=== PATIENT | female | born 1995 | race Caucasian/White ===

== ENCOUNTER 2018-08-22 17:07 | Emergency (ER) | payer OTHER ==
[~2018-08-22] VITALS: Ht 157.5 cm; Wt 64.0 kg
[2018-08-22 17:14] VITALS: Ht 157.5 cm; Wt 64.0 kg
--- NOTE | 2018-08-22 18:24 | EN ---
Date/Time of Note Date/Time of Note DATE: 08/22/18 TIME: 18:18 ER Progress Note 22-year-old female, discharged yesterday from [place] for a right ovarian cyst, presents complaining of vaginal bleeding and mild pain in the right area. Patient is stable to be seen in the ED to, I will start work-up in triage. THALIA MCCAIN MD Aug 22, 2018 18:24
[2018-08-22] MEDS ORDERED: morphine 4 MG/ML VIAL IV STA (19:14)
[2018-08-22] MEDS ORDERED: ONDANSETRON 4 MG INJ IV STA (19:14)
--- NOTE | 2018-08-22 19:22 | ERD ---
ER Documentation Chief Complaint Chief Complaint pt is bib RA [id number] with c/o abd pain hx cyst HPI This is a 22-year-old female with history of recent ruptured right ovarian cyst who presents to the ED complaining of pelvic pain and gross hematuria x1 day. Patient states she was seen at [place] yesterday for ruptured right ovarian cyst. She was also told that she had anemia with a hemoglobin is 7.3. She refused to transfusion at that time. She states she was home today when she started to have sudden onset sharp right lower pelvic pain, similar to her previous pain. She states she noticed gross hematuria when urinating today. She states she feels dizzy and lightheaded. She denies any nausea or vomiting. She took [place] prior to coming here. Denies any fevers. Denies vaginal bleeding. No other complaints. ROS All systems reviewed and are negative except as per history of present illness. Medications Home Meds Active Scripts Ibuprofen* (Motrin*) 600 Mg Tab, 600 MG PO Q6H PRN for PAIN AND OR ELEVATED TEMP, #30 TAB Prov:DISHIGRIKIAN,ZEPYUR N PA-C 08/22/18 Acetaminophen with Codeine (Acetaminophen-Cod #3 Tablet) 1 Each Tablet, 1 TAB PO Q6H PRN for PAIN, #10 TAB Prov:DISHIGRIKIAN,ZEPYUR N PA-C 08/22/18 Noreth A-Et Estra/Fe Fumarate (LO LOESTRIN FE 1-10 TABLET) 1 Each Tablet, 1 EACH PO DAILY for 30 Days, #90 TAB Prov:DISHIGRIKIAN,ZEPYUR N PA-C 08/22/18 Allergies Allergies: Coded Allergies: No Known Allergy (Unverified , 08/22/18) PMhx/Soc History of Surgery: Yes (lymph node removal ) Hx Alcohol Use: No Hx Substance Use: Yes Hx Tobacco Use: No Smoking Status: Never smoker Physical Exam Vitals Vital Signs Date Temp Pulse Resp B/P (MAP) Pulse Ox O2 O2 Flow FiO2 Time Delivery Rate 08/22/18 74 16 117/72 100 Room Air 22:05 (87) 08/22/18 77 16 112/78 99 Room Air 19:46 (89) 08/22/18 98.3 84 16 112/68 98 17:14 (83) Physical Exam Const: + Mild distress secondary to pain. Head: Atraumatic Eyes: Normal Conjunctiva ENT: Normal External Ears, Nose and Mouth. Neck: Full range of motion. No meningismus. Resp: Clear to auscultation bilaterally Cardio: Regular rate and rhythm, no murmurs Abd: Soft, + lower abdominal tenderness palpation, no rebound, no guarding, non distended. Normal bowel sounds Skin: No petechiae or rashes Back: No midline or flank tenderness Ext: No cyanosis, or edema Neur: Awake and alert Psych: Normal Mood and Affect Result Diagram: 08/22/18185408/22/181854 Results 24 hrs Laboratory Tests Test 08/22/18 18:50 08/22/18 18:55 08/22/18 19:08 Urine Color YELLOW Urine Clarity SLIGHTLY CLOUDY Urine pH 7.0 Urine Specific [place] 1.014 Urine Ketones 1+ mg/dL Urine Nitrite NEGATIVE mg/dL Urine Bilirubin NEGATIVE mg/dL Urine Urobilinogen NEGATIVE mg/dL Urine Leukocyte Esterase NEGATIVE Sean/ul Urine Microscopic RBC 2-5 /HPF Urine Microscopic WBC 3 /HPF Urine Squamous Epithelial Cells FEW /HPF Urine Bacteria FEW /HPF Urine Hemoglobin 3+ mg/dL Urine Glucose NEGATIVE mg/dL Urine Total Protein NEGATIVE mg/dl Urine Test NEGATIVE White Blood Count 7.0 10^3/ul Red Blood Count 3.25 10^6/ul Hemoglobin 8.6 g/dl Hematocrit 27.1 % Mean Corpuscular Volume 83.4 fl Mean Corpuscular Hemoglobin 26.5 pg Mean Corpuscular 31.7 g/dl Hemoglobin Concent Red Cell Distribution Width 16.8 % Platelet Count 254 10^3/UL Mean Platelet Volume 11.6 fl Neutrophils % 67.6 % Lymphocytes % 21.0 % Monocytes % 8.5 % Eosinophils % 2.0 % Basophils % 0.4 % Nucleated Red Blood Cells % 0.0 /100WBC Neutrophils # 4.7 10^3/ul Lymphocytes # 1.5 10^3/ul Monocytes # 0.1 10^3/ul Eosinophils # 0.0 10^3/ul Basophils # 0.0 10^3/ul Nucleated Red Blood Cells # 0.0 10^3/ul Sodium Level 139 mmol/L Potassium Level 4.0 mmol/L Chloride Level 106 mmol/L Carbon Dioxide Level 23 mmol/L Anion Gap 10 Blood Urea Nitrogen 7 mg/dl Creatinine 0.50 mg/dl Est Glomerular Filtrat > 60 mL/min Rate mL/min Glucose Level 84 mg/dl Calcium Level 9.6 mg/dl Total Bilirubin 0.5 mg/dl Direct Bilirubin 0.00 mg/dl Indirect Bilirubin 0.5 mg/dl Aspartate Amino Transf (AST/SGOT) 25 IU/L Alanine 16 IU/L Aminotransferase (ALT/SGPT) Alkaline Phosphatase 69 IU/L Total Protein 8.1 g/dl Albumin 4.6 g/dl Globulin 3.50 g/dl Albumin/Globulin Ratio 1.31 Lipase 55 U/L Serum HCG, Qualitative POSITIVE POC Beta HCG, Qualitative NEGATIVE Current Medications Medications Dose Sig/Eleni Start Time Status Last (Trade) Ordered Route PRN Stop Time Admin Dose Reason Admin Sodium 1,000 ml @ Q1H STAT 08/22/18 DC Chloride 1,000 mls/hr IV 19:14 08/22/18 20:13 Morphine 4 mg ONCE STAT 08/22/18 DC 08/22/18 Sulfate IV 19:14 19:41 (morphine) 08/22/18 19:16 Ondansetron 4 mg ONCE STAT 08/22/18 DC 08/22/18 HCl (Zofran IV 19:14 19:41 Inj) 08/22/18 19:16 Procedures/MDM LABS & DIAGNOSTIC IMAGING: CBC: Mild anemia with H&H of 8.6, 27.1 CMP: no e/o severe acidosis, alkalosis, renal failure, diabetic ketoacidosis, liver disease The patient's lipase is normal and indicative of no pancreatitis. Urine: 3+ hgb hcg: neg PROCEDURE: Pelvic ultrasound, limited. CLINICAL INDICATION: Pelvic pain and vaginal bleeding. TECHNIQUE: Multiple sonographic images of the pelvis were obtained utilizing a transabdominal technique. The images were reviewed on a PACS workstation. COMPARISON: None. FINDINGS: The uterus is visualized and measures 6.3 x 3.5 x 4.2 cm. No abnormal uterine mass is identified. The endometrial echo complex is homogeneous and measures 8.1 mm. There is moderate free fluid within the cul-de-sac and bilateral adnexa. The right ovary has a normal echotexture and measures 3.8 x 2.3 x 4.0 cm. The left ovary has a normal echotexture and measures 3.4 x 1.9 x 2.5 cm. There is normal flow to both ovaries. There is a follicular cyst within the right ovary measuring 1.2 x 0.9 cm. No adnexal masses are identified. IMPRESSION: Moderate pelvic free fluid. Otherwise unremarkable pelvic ultrasound. ED COURSE: The patient was given IV fluids, morphine, Zofran The medication was well tolerated and the patient had market improvement in symptoms. The patient remained stable throughout ED course. MEDICAL DECISION MAKIN-year-old female with a recently ruptured ovarian cyst presents with vaginal bleeding and pelvic pain. Her pelvic ultrasound reveals a 1 cm right ovarian cyst and moderate amount of free fluid. Free fluid is likely related to her recent ovarian cyst rupture. She has mild anemia on CBC with hemoglobin of 8.6. Her vital signs are normal and she is hemodynamically stable, she does not meet criteria for transfusion at this time. Patient's pain improved after morphine. Patient was discharged home with a prescription for ibuprofen, Tylenol as well as control pills to prevent any new cysts from forming. She was told to return here in 1 week or see her [facility] in 1 week for repeat pelvic ultrasound. Strict return precautions were discussed. PRESCRIPTIONS: Tylenol with codeine, OCP, ibuprofen SPECIALIST FOLLOW UP RECOMMENDED: None Patient has been advised to follow up with primary care in 1-2 days. Departure Diagnosis: Primary Impression: Right ovarian cyst Condition: Stable BATSHEVA ALLEN PA-C Aug 22, 2018 19:22
[2018-08-22] MEDS ORDERED: ONDANSETRON 4 MG INJ ONE (19:28)
[2018-08-22] MEDS ORDERED: morphine 4 MG/ML VIAL ONE (19:28)
[2018-08-22] MEDS: SOD CHLORIDE 0.9% 1,000 ML IV STA ×2 (20:07→20:11)
[2018-08-22] MEDS ORDERED: IBUP-1542 PO (21:52)
[2018-08-22] MEDS ORDERED: NORE1TAB12 PO (21:52)
[2018-08-22] MEDS ORDERED: ACET1TAB40 PO (21:52)
[2018-08-22 22:05] VITALS: BP 117/72; PULSE 74; RESP 16
== END 2018-08-22 22:06 | disposition home or self-care (01) ==
LOC: FTE 17:07
DX: N83.201 Unspecified ovarian cyst, right side (principal)
CPT/HCPCS: 76856; 80053; 81001; 81025; 83690; 84703; 85025; 86850; 86900; 86901; J2270; J2405; J7030